=== PATIENT | male | born 1975 | race Caucasian/White ===

== ENCOUNTER → 2019-03-18 | Outpatient (CLI) | payer BC ==
[~2019-03-18] MED LIST: GLUCOPHAGE500 MG/TAB PO; PRINIVIL20 MG PO; TOPROL XL 25MG25 MG PO
== END ==
LOC: COL.RAD 07:33
DX: G95.9 Disease of spinal cord, unspecified (principal); M50.00 Cervical disc disorder with myelopathy, unspecified cervical region; M48.02 Spinal stenosis, cervical region; M25.78 Osteophyte, vertebrae

== ENCOUNTER → 2020-05-03 | Outpatient (CLI) | payer BC | LOC: COL.RAD 12:01 | DX: M48.04 Spinal stenosis, thoracic region (principal); M51.24 Other intervertebral disc displacement, thoracic region ==

== ENCOUNTER → 2020-09-21 | Outpatient (CLI) | payer BC | LOC: DIA.ED 09:11 | DX: Z79.4 Long term (current) use of insulin (principal); I10 Essential (primary) hypertension; E78.5 Hyperlipidemia, unspecified | CPT/HCPCS: G0108 ==

== ENCOUNTER → 2020-11-10 | Outpatient (CLI) | payer BC | LOC: DIA.ED 08:31 | DX: E11.40 Type 2 diabetes mellitus with diabetic neuropathy, unspecified (principal); Z79.4 Long term (current) use of insulin; I10 Essential (primary) hypertension; E78.5 Hyperlipidemia, unspecified | CPT/HCPCS: G0108 ==

== ENCOUNTER 2021-01-14 15:59 | Emergency (ER) | payer BC ==
[~2021-01-14] VITALS: Ht 182.9 cm; Wt 168.2 kg
[2021-01-14 19:26] VITALS: BP 174/77; PULSE 82; TEMP 98.7
== END 2021-01-14 19:26 | disposition home or self-care (01) ==
LOC: COL.ER 15:59
DX: S61.012A Laceration without foreign body of left thumb without damage to nail, initial encounter (principal); E11.9 Type 2 diabetes mellitus without complications; I10 Essential (primary) hypertension; Z23 Encounter for immunization; Z79.84 Long term (current) use of oral hypoglycemic drugs; Z79.899 Other long term (current) drug therapy; W27.0XXA Contact with workbench tool, initial encounter